=== PATIENT | female | born 1970 | race Caucasian/White ===

== ENCOUNTER 2021-07-09 15:54 | Emergency (ER) | payer OTHER, SELFPAY ==
[2021-07-09 15:55] VITALS: BP 159/107; PULSE 96; RESP 15; TEMP 36.4; O2SAT 99; BMI 37.8
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
[2021-07-09 16:16] VITALS: BP 138/75; PULSE 85; RESP 16; TEMP 36.9; O2SAT 99
[2021-07-09] MEDS: LORazepam 2 MG/ML Syringe 0.5 MG IV (16:47)
[2021-07-09] MEDS: Lidocaine 1% (20 ml mdv) 20 ML Vial INFILT (17:08)
--- NOTE | 2021-07-09 17:10 | RAD_ITS ---
EXAM: XR MANDIBLE COMPLETE, 4 OR MORE VIEWS CLINICAL INDICATION: Blunt trauma, abnormal movement and clicking with -- With opening and closing her mouth Technologist Notes DOG BITE TO FACE ON RIGHT CHEEK. PER ER DOCTOR''S REQUEST, WANTED PICTURE INCLUDED OF ENTIRE MANDIBLE WITH OPENING OF THE MOUTH. ABNORMAL MOVEMENT WITH CLICKING. TECHNIQUE: Frontal, oblique and lateral views of the mandible. This report was created using [employer] report generation technology. COMPARISON: None. FINDINGS: DENTAL: No acute findings. BONES/JOINTS: Unremarkable. No fracture. No subluxation. No sclerotic or destructive changes observed. SOFT TISSUES: Unremarkable. No soft tissue swelling or gas. No radiopaque foreign body. RAD/Mandible Min 4 Views IMPRESSION: Negative mandible x-rays. Electronically Signed: Reno Weeks MD at 17:36 EST , Service support ,
[2021-07-09] MEDS: Diphth,Pertuss(Acell),Tet Vac 0.5 ML Vial IM (18:13)
== END 2021-07-09 20:04 | disposition home or self-care (01) ==
PROVIDERS: Emergency Provider Emergency Medicine; PCP Student in an Organized Health Care Education/Training Program; Visit Provider Emergency Medicine
DX: S01.411A Laceration without foreign body of right cheek and temporomandibular area, initial encounter (principal); S00.87XA Other superficial bite of other part of head, initial encounter; W54.0XXA Bitten by dog, initial encounter; Y93.9 Activity, unspecified; Y92.9 Unspecified place or not applicable; E66.9 Obesity, unspecified; Z68.37 Body mass index [BMI] 37.0-37.9, adult
CPT/HCPCS: 12011; 70110; 90715; 96365; 96375; 99285; J7050; A4216

== ENCOUNTER → 2022-02-22 | Outpatient (CLI) | payer OTHER, SELFPAY ==
--- NOTE | 2022-02-22 | FLU_PTH ---
PATIENT: ARI FUENTES [facility] U#:[id number] AGE/SX: 51/F ROOM: RE02/22/[address]: Dr. Juan Bowen MD : 1970 BED: DIS: 02/22/2022 SPEC #: [id number] RECD: 02/22/22 16:56 STATUS: ADELIA HEATH #: [id number] ELIAS: 02/22/22 00:[address]: Juan Bowen DEPT: CYTOLOGY RECD BY: Hafsa Fox ENTERED: 02/23/22 08:08 SP TYPE: Fluid OTHR DR: Dr. Landen Vu, DO Tissues: A - Thyroid gland, NOS B - Thyroid gland, NOS Procedures: Special Stain Group II Surgery Specimen Level IV Cytospin Fluid Cytology Other HEADER OPERATION: Fine needle aspiration left thyroid PRE-OP DIAGNOSIS: Nodule left thyroid TISSUE SUBMITTED: A ? Left thyroid fluid, B ? Left thyroid x12 slides DIAGNOSIS CYTOLOGY A. Fine needle aspiration, left thyroid nodule (cytospin and cell block): Benign, consistent with benign follicular nodule ([place] Category II). B. Fine needle aspiration, left thyroid nodule (smears): Benign, consistent with benign follicular nodule ([place] Category II). See comment. AM:mihir 02/24/2022 COMMENT B. The specimen is adequate for evaluation. The [place] System for thyroid diagnostic categorization was used in the evaluation of this case. CYTOLOGY STUDY Slides are reviewed. CYTOLOGY GROSS A - Received is 30 ml of red cloudy fluid labeled with the patient's name and and designated per the requisition as left thyroid. Submitted for cytology preparation including cell block. B - Received are 12 smears labeled with the patient's name and designated per the requisition as left thyroid. Submitted for staining. / mihir 02/23/2022 TC:5 CPT: 96235 x2, 52437
== END | disposition home or self-care (01) ==
PROVIDERS: PCP Student in an Organized Health Care Education/Training Program; Visit Provider Surgery
DX: E04.1 Nontoxic single thyroid nodule (principal)
CPT/HCPCS: 88108; 88161; 88305; 88313